=== PATIENT | female | born 1965 | race Caucasian/White ===

== ENCOUNTER 2017-03-15 18:57 | Emergency (ER) | payer MEDICAID ==
[2017-03-15 18:58] VITALS: PULSE 74; BMI 21.7
[2017-03-15 19:10] VITALS: O2SAT 97
--- NOTE | 2017-03-15 19:25 | C.PDOC ---
History Of Present Illness Patient presents to the ED with complaints of intermittent headache for the last two weeks. 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 Patient denies any trauma, weakness, nausea, and vomiting. Time Seen by Provider: 03/15/17 19:14 Chief Complaint (Nursing): Headache History Per: Patient History/Exam Limitations: no limitations Onset/Duration Of Symptoms: Intermittent Episodes (on and off headaches for two weeks ) Current Symptoms Are (Timing): Still Present Severity: Mild Pain Scale Rating Of: 4 Preceeding Symptoms: denies: Visual Disturbances Associated Symptoms: denies: Photophobia, Blurred Vision, Nausea, Vomiting, Extremity Weakness Recent travel outside of the [place]: No Past Medical History Reviewed: Historical Data, Nursing Documentation, Vital Signs Vital Signs: Last Vital Signs Temp 98.5 F 03/15/17 19:06 Pulse 79 03/15/17 19:06 Resp 18 03/15/17 19:06 BP 157/66 H 03/15/17 19:06 Pulse Ox 97 03/15/17 21:03 - Medical History PMH: Anxiety, Arthritis, Atrial Fibrillation, CHF, CVA, Depression, HTN, Hypercholesterolemia, Rheumatoid Arthritis, Seizures - [facility] Procedures GAIT TRAINING/FUNCTIONAL AMBULATION TREATMENT (07/17/15) HOME MANAGEMENT TREATMENT (07/17/15) INTRODUCE OTH THROMBOLYTIC IN PERIPH VEIN, PERC (07/08/15) MOTOR SPEECH TREATMENT (07/17/15) THERAPEUTIC EXERCISE TREATMENT OF MUSCULOSK WHOLE (07/17/15) Family History: States: No Known Family Hx - Social History Hx Tobacco Use: No Hx Alcohol Use: No Hx Substance Use: No - Immunization History Hx Tetanus Toxoid Vaccination: No Hx Influenza Vaccination: No Hx Pneumococcal Vaccination: No Review Of Systems Constitutional: Negative for: Fever, Chills, Sweats Eyes: Negative for: Pain, Vision Change Cardiovascular: Negative for: Chest Pain, Palpitations Respiratory: Negative for: Cough, Shortness of Breath Gastrointestinal: Negative for: Nausea, Vomiting, Abdominal Pain, Diarrhea Neurological: Positive for: Headache. Negative for: Weakness, Numbness Physical Exam - Physical Exam Appears: Non-toxic, No Acute Distress Skin: Warm, Dry Head: Atraumatic Eye(s): bilateral: PERRL, EOMI Neck: Supple Chest: Symmetrical, No Deformity Cardiovascular: Rhythm Regular Respiratory: No Rales, No Rhonchi, No Stridor, No Wheezing Gastrointestinal/Abdominal: Soft, No Tenderness, No Distention, No Guarding, No Rebound Extremity: Normal ROM, No Tenderness Neurological/Psych: Oriented x3, Other (speaking in complete sentences ) ED Course And Treatment - Laboratory Results Result Diagrams: 03/15/17 19:30 03/15/17 19:30 ECG: Interpreted By Me, Viewed By Me ECG Rhythm: Sinus Rhythm (75), 1st Degree HB, Nonspecific Changes O2 Sat by Pulse Oximetry: 97 Pulse Ox Interpretation: Normal Medical Decision Making Medical Decision Making: EXAM: CT Head Without Intravenous Contrast CLINICAL HISTORY: 52 years old, female; Pain; Headache TECHNIQUE: Axial computed tomography images of the head/brain without intravenous contrast. This CT exam was performed using one or more of the following dose reduction techniques: automated exposure control, adjustment of the mA and/or kV according to patient size, and/or use of iterative reconstruction technique. EXAM DATE/TIME: 03/15/2017 7:26 PM COMPARISON: CT - HEAD W/O CONTRAST 01/15/2016 1:12:05 PM FINDINGS: Brain: There is encephalomalacia in the right frontal, temporal and parietal lobes, unchanged. Ventricles are mildly dilated. There is compensatory dilatation of the right lateral ventricle. There is mild atrophic midline shift to the right, unchanged. There is mild prominence of sulci and gyri. There is decreased attenuation in periventricular white matter. There are no focal masses. There are no focal hemorrhages. De La Paz-white differentiation is visualized. Ventricles: See above Bones: Cranial vault is intact. Soft tissues: unremarkable Sinuses: There is no acute sinusitis Ears and mastoids: Middle ears and mastoids are unremarkable. Orbits: Orbital contents are unremarkable. IMPRESSION: Old right MCA distribution infarct, no acute intracranial abnormality Disposition Counseled Patient/Family Regarding: Studies Performed, Diagnosis - Disposition Referrals: Adonay Roa DO [Staff Provider] - Disposition: HOME/ ROUTINE Disposition Time: 19:25 Condition: FAIR Prescriptions: Naproxen [Naprosyn] 1 tab PO BID PRN #25 tab PRN Reason: Pain Instructions: Cervical Strain (DC) - Clinical Impression Clinical Impression: Headache, Cervical strain - Scribe Statement The provider has reviewed the documentation as recorded by the Scribe Ngoc Man All medical record entries made by the Scribe were at my direction and personally dictated by me. I have reviewed the chart and agree that the record accurately reflects my personal performance of the history, physical exam, medical decision making, and the department course for this patient. I have also personally directed, reviewed, and agree with the discharge instructions and disposition.
[2017-03-15 19:33] LABS: BASO % 0.5 % (0.0-2.0); EOS # 0.1 K/uL (0.0-0.7); EOS % 1.2 % (0.0-4.0); HEMATOCRIT 43.2 % (34.0-47.0); LYMPH # 2.5 K/uL (1.0-4.3); LYMPH % 31.6 % (20.0-40.0); MEAN CELL VOLUME 87.3 fL (81.0-99.0); MEAN CORPUSCULAR HEMOGLOBIN 29.6 pg (27.0-31.0); MEAN CORPUSCULAR HGB CONC 33.9 g/dL (33.0-37.0); MEAN PLATELET VOLUME 8.6 fL (7.2-11.7); MONO # 0.4 K/uL (0.0-0.8); MONO % 5.5 % (0.0-10.0); NRBC % 0.1 % (0.0-2.0); RED CELL DISTRIBUTION WIDTH 13.1 % (11.5-14.5)
[2017-03-15 19:45] LABS: CHLORIDE 98 mmol/L (98-107)
[2017-03-15 19:46] LABS: POTASSIUM 3.7 mmol/L (3.6-5.2); SODIUM 138 mmol/L (132-148)
[2017-03-15 19:48] LABS: BILIRUBIN,TOTAL 0.8 mg/dL (0.2-1.3); CARBON DIOXIDE 29 mmol/L (22-30); GFR AFRICAN-AMERICAN > 60
[2017-03-15 19:49] LABS: ALB/GLOB RATIO 1.3 (1.0-2.1); ALKALINE PHOSPHATASE 93 U/L (38-126); ALT/SGPT 32 U/L (9-52); AST/SGOT 28 U/L (14-36); BLOOD UREA NITROGEN 15 mg/dL (7-17); CALCIUM 8.6 mg/dl (8.6-10.4); GLUCOSE,RANDOM 100 mg/dL (65-105); TOTAL PROTEIN 8.2 g/dL (6.3-8.3)
--- NOTE | 2017-03-15 20:38 | CT ---
EXAM: CT Head Without Intravenous Contrast CLINICAL HISTORY: 52 years old, female; Pain; Headache TECHNIQUE: Axial computed tomography images of the head/brain without intravenous contrast. This CT exam was performed using one or more of the following dose reduction techniques: automated exposure control, adjustment of the mA and/or kV according to patient size, and/or use of iterative reconstruction technique. EXAM DATE/TIME: 03/15/2017 7:26 PM COMPARISON: CT - HEAD W/O CONTRAST 01/15/2016 1:12:05 PM FINDINGS: Brain: There is encephalomalacia in the right frontal, temporal and parietal lobes, unchanged. Ventricles are mildly dilated. There is compensatory dilatation of the right lateral ventricle. There is mild atrophic midline shift to the right, unchanged. There is mild prominence of sulci and gyri. There is decreased attenuation in periventricular white matter. There are no focal masses. There are no focal hemorrhages. De La Paz-white differentiation is visualized. Ventricles: See above Bones: Cranial vault is intact. Soft tissues: unremarkable Sinuses: There is no acute sinusitis. Ears and mastoids: Middle ears and mastoids are unremarkable. Orbits: Orbital contents are unremarkable. IMPRESSION: Old right MCA distribution infarct, no acute intracranial abnormality
[2017-03-15 21:23] LABS: RBC URINE < 1 /hpf (0-3); URINE BACTERIA OCC (<OCC); URINE BILIRUBIN NEGATIVE (NEGATIVE); URINE BLOOD NEGATIVE (NEGATIVE); URINE COLOR Yellow (YELLOW); URINE GLUCOSE (UA) NORMAL (Normal); URINE KETONE NEGATIVE (NEGATIVE); URINE LEUKOCYTE ESTERASE NEG Leu/uL (Negative); URINE PROTEIN NEGATIVE (NEGATIVE); URINE UROBILINOGEN NORMAL mg/dL (0.2-1.0); WBC URINE < 1 /hpf (0-5)
[2017-03-15 22:51] VITALS: RESP 16; TEMP 98.4
[2017-03-16 01:16] VITALS: BP 128/86; PULSE 88
== END 2017-03-16 01:16 | disposition home or self-care (01) ==
LOC: C.ER 18:57
DX: R51 Headache (principal); S16.1XXA Strain of muscle, fascia and tendon at neck level, initial encounter; X58.XXXA Exposure to other specified factors, initial encounter
CPT/HCPCS: 70450; 80053; 81001; 85025; 96372; 96374; 99285; J1885; J2405

== ENCOUNTER 2018-07-09 10:54 | Emergency (ER) | payer MEDICAID ==
[2018-07-09 10:54] VITALS: PULSE 74; BMI 21.7
[2018-07-09] MEDS ORDERED: Sodium Chloride 0.9% 1,000 ML IV ONE (11:13)
[2018-07-09] MEDS ORDERED: Sodium Chloride 0.9% 1,000 ML ONE (11:23)
[2018-07-09 11:24] LABS: BASO % 0.4 % (0.0-2.0); EOS # 0.1 K/uL (0.0-0.7); EOS % 1.1 % (0.0-4.0); HEMOGLOBIN 13.8 g/dL (11.0-16.0); LYMPH % 9.4 % (20.0-40.0); MEAN CELL VOLUME 84.9 fL (81.0-99.0); MEAN CORPUSCULAR HEMOGLOBIN 28.6 pg (27.0-31.0); MEAN CORPUSCULAR HGB CONC 33.7 g/dL (33.0-37.0); MEAN PLATELET VOLUME 9.1 fL (7.2-11.7); MONO # 0.5 K/uL (0.0-0.8); MONO % 4.5 % (0.0-10.0); NEUT # 9.4 K/uL (1.8-7.0); NEUT % 84.6 % (50.0-75.0); NRBC % 0.1 % (0.0-2.0); PLATELET COUNT 237 K/uL (130-400); RBC 4.82 Mil/uL (3.80-5.20); RED CELL DISTRIBUTION WIDTH 14.3 % (11.5-14.5); WHITE BLOOD COUNT 11.1 K/uL (4.8-10.8)
[2018-07-09 11:41] LABS: ALB/GLOB RATIO 1.1 (1.0-2.1); ALBUMIN 4.1 g/dL (3.5-5.0); ALT/SGPT 23 U/L (9-52); AST/SGOT 22 U/L (14-36); BLOOD UREA NITROGEN 8 mg/dL (7-17); CALCIUM 9.1 mg/dl (8.6-10.4); GFR NON-AFRICAN AMERICAN > 60; LIPASE 20 U/L (23-300)
[2018-07-09 11:44] LABS: SQUAMOUS EPITHIAL 21 /hpf (0-5); URINE BACTERIA FEW (<OCC); URINE BILIRUBIN NEGATIVE (NEGATIVE); URINE BLOOD 1+ (NEGATIVE); URINE CLARITY Hazy (Clear); URINE COLOR Yellow (YELLOW); URINE GLUCOSE (UA) NORMAL (Normal); URINE LEUKOCYTE ESTERASE 2+ Leu/uL (Negative); URINE PROTEIN NEGATIVE (NEGATIVE); URINE UROBILINOGEN NORMAL mg/dL (0.2-1.0)
[2018-07-09 11:57] LABS: LYMPHOCYTE 11 % (20-40); MONOCYTE 1 % (0-10); NEUTROPHIL 88 % (50-75); PLATELET ESTIMATE NORMAL (NORMAL); TOTAL CELLS COUNTED 100
--- NOTE | 2018-07-09 12:14 | C.PDOC ---
History Of Present Illness 53-year-old female, PMHx includes CVA, presents to the emergency department with multiple complaints. Patient had an MRI done two weeks ago. Pt comes in today, complaining of generalized weakness, dizziness, nausea, and sore throat. She denies any fever, chills, chest pain, shortness of breath or any other associated symptoms. No other complaints at this time. Time Seen by Provider: 07/09/18 11:00 Chief Complaint (Nursing): Dizziness/Lightheaded History Per: Patient History/Exam Limitations: no limitations Past Medical History Reviewed: Historical Data, Nursing Documentation, Vital Signs Vital Signs: Last Vital Signs Temp 99.5 F 07/09/18 11:05 Pulse 99 H 07/09/18 11:05 Resp 18 07/09/18 11:05 BP 135/82 07/09/18 11:05 Pulse Ox 94 L 07/09/18 11:05 - Medical History PMH: Anxiety, Arthritis, Atrial Fibrillation, CHF, CVA, Depression, HTN, Hypercholesterolemia, Rheumatoid Arthritis, Seizures Denies: COPD, Hypothyroidism, Chronic Kidney Disease - [facility] Procedures GAIT TRAINING/FUNCTIONAL AMBULATION TREATMENT (07/17/15) HOME MANAGEMENT TREATMENT (07/17/15) INTRODUCE OTH THROMBOLYTIC IN PERIPH VEIN, PERC (07/08/15) MOTOR SPEECH TREATMENT (07/17/15) THERAPEUTIC EXERCISE TREATMENT OF MUSCULOSK WHOLE (07/17/15) Family History: States: No Known Family Hx - Social History Hx Tobacco Use: No Hx Alcohol Use: No Hx Substance Use: No - Immunization History Hx Tetanus Toxoid Vaccination: No Hx Influenza Vaccination: No Hx Pneumococcal Vaccination: No Review Of Systems Constitutional: Negative for: Fever ENT: Positive for: Throat Pain Gastrointestinal: Positive for: Nausea Neurological: Positive for: Headache, Dizziness Physical Exam - Physical Exam Appears: Non-toxic, No Acute Distress Skin: Normal Color, Warm, Dry Head: Atraumatic, Normacephalic Eye(s): bilateral: Normal Inspection Nose: Normal Oral Mucosa: Moist Lips: Normal Appearing Neck: Normal ROM Cardiovascular: Rhythm Regular, No Murmur Respiratory: Normal Breath Sounds, No Decreased Breath Sounds, No Accessory Muscle Use Gastrointestinal/Abdominal: Soft, No Tenderness Back: Normal Inspection Extremity: Other (left arm/hand contracted, left leg decrease strength) Neurological/Psych: Other (residual left-sided weakness from prior CVA) ED Course And Treatment - Laboratory Results Result Diagrams: 07/09/18 11:20 07/09/18 11:20 Lab Interpretation: No Acute Changes ECG: Interpreted By Me ECG Rhythm: Sinus Rhythm, Nonspecific Changes ECG Interpretation: No Acute Changes Rate From EC O2 Sat by Pulse Oximetry: 94 Pulse Ox Interpretation: Normal - Radiology CXR: Interpreted by Me CXR Interpretation: Yes: No Acute Disease - CT Scan/US No standard instances Other Rad Studies (CT/US): Read By Radiologist, Radiology Report Reviewed CT/US Interpretation: FINDINGS: HEMORRHAGE: No acute parenchymal, subarachnoid or extra-axial hemorrhage. BRAIN: Redemonstrated is a chronic right MCA territory infarct which involves the right lateral basal ganglia. There is associated ex vacuo dilatation of the right lateral ventricle particularly the right frontal horn and anterior body of the lateral ventricle. Additionally, there also appears to be some very mild chronic periventricular white matter ischemic changes. Note the possibility of a small hyperacute infarct cannot be excluded. Moderate generalized volume loss, not withstanding the aforementioned infarct and ex vacuo dilatation changes. Minor vascular calcifications both carotid siphons. VENTRICLES: No obstructive hydrocephalus. CALVARIUM: Calvarium intact. PARANASAL SINUSES: Unremarkable as visualized. No significant inflammatory changes. MASTOID AIR CELLS: Unremarkable as visualiz ed. No inflammatory changes. OTHER FINDINGS: None. IMPRESSION: No acute intracranial hemorrhage. Large chronic right MCA territory infarct which involves the right lateral basal ganglia. There is associated ex vacuo dilatation right lateral ventricle. Mild chronic periventricular white matter ischemic changes.. Moderate generalized volume loss Disposition Counseled Patient/Family Regarding: Studies Performed, Diagnosis, Need For Followup, Rx Given - Disposition Referrals: Adonay Roa DO [Staff Provider] - Disposition: HOME/ ROUTINE Disposition Time: 13:00 Condition: STABLE Additional Instructions: Follow up with your PMD for further evaluation Return to ED if any increase symptoms Prescriptions: Sulfamethoxazole/Trimethoprim [Bactrim DS 800 mg-160 mg] 1 tab PO BID #14 tab Instructions: Urinary Tract Infections in Adults, Vertigo (a Type of Dizziness) (DC) Forms: [facility] ([place]) - POA Present On Arrival: None - Clinical Impression Clinical Impression: Dizziness, UTI (urinary tract infection) - Scribe Statement The provider has reviewed the documentation as recorded by the Scribe (Joshua Marks) All medical record entries made by the Scribe were at my direction and personally dictated by me. I have reviewed the chart and agree that the record accurately reflects my personal performance of the history, physical exam, medical decision making, and the department course for this patient. I have also personally directed, reviewed, and agree with the discharge instructions and d isposition.
--- NOTE | 2018-07-09 12:42 | CT ---
Date of service: 07/09/2018 PROCEDURE: CT HEAD WITHOUT CONTRAST. HISTORY: R/O Bleed COMPARISON: Comparison made with prior CT scan brain 03/15/2017 TECHNIQUE: Axial computed tomography images were obtained through the head/brain without intravenous contrast. Radiation dose: Total exam DLP = 1199.63 mGy-cm. This CT exam was performed using one or more of the following dose reduction techniques: Automated exposure control, adjustment of the mA and/or kV according to patient size, and/or use of iterative reconstruction technique. FINDINGS: HEMORRHAGE: No acute parenchymal, subarachnoid or extra-axial hemorrhage. BRAIN: Redemonstrated is a chronic right MCA territory infarct which involves the right lateral basal ganglia. There is associated ex vacuo dilatation of the right lateral ventricle particularly the right frontal horn and anterior body of the lateral ventricle. Additionally, there also appears to be some very mild chronic periventricular white matter ischemic changes. Note the possibility of a small hyperacute infarct cannot be excluded. Moderate generalized volume loss, not withstanding the aforementioned infarct and ex vacuo dilatation changes. Minor vascular calcifications both carotid siphons. VENTRICLES: No obstructive hydrocephalus. CALVARIUM: Calvarium intact. PARANASAL SINUSES: Unremarkable as visualized. No significant inflammatory changes. MASTOID AIR CELLS: Unremarkable as visualized. No inflammatory changes. OTHER FINDINGS: None. IMPRESSION: No acute intracranial hemorrhage. Large chronic right MCA territory infarct which involves the right lateral basal ganglia. There is associated ex vacuo dilatation right lateral ventricle. Mild chronic periventricular white matter ischemic changes.. Moderate generalized volume loss
[2018-07-09] MEDS ORDERED: Tmp-Smz 800 mg-160 mg DS Tab PO STA (12:45)
[2018-07-09] MEDS ORDERED: Tmp-Smz 800 mg-160 mg DS Tab ONE (13:00)
--- NOTE | 2018-07-09 13:16 | RAD ---
Date of service: 07/09/2018 PROCEDURE: CHEST RADIOGRAPH, 1 VIEW HISTORY: SOB COMPARISON: 07/15/2016 FINDINGS: LUNGS: Shallow inspiration. Limited visualization of the left lung base-attributed to cardiomegaly, large body habitus and prominent breast soft tissues. No consolidation. PLEURA: No pneumothorax.Although a trace left pleural effusion cannot be entirely excluded-no more significant appearing small left pleural effusion as prior study reported is now appreciated. CARDIOVASCULAR: Cardiomegaly-similar. Central pulmonary vasculature probably [id number] per shallow lung volumes. A mild central pulmonary venous congestion is still possible. OSSEOUS STRUCTURES: Thoracic spondylosis. Bilateral shoulder arthrosis. No destructive lesion is appreciated VISUALIZED UPPER ABDOMEN: Mild asymmetrical elevation the right hemidiaphragm-stable finding OTHER FINDINGS: None. IMPRESSION: Limited exam given shallow inspiration. Similar cardiomegaly. Mild central pulmonary venous congestion possible.
[2018-07-09 13:34] VITALS: RESP 16
[2018-07-09 15:16] VITALS: BP 118/75; PULSE 85; TEMP 98.6
[2018-07-09 18:36] VITALS: O2SAT 94
--- NOTE | 2018-07-10 11:35 | CARD ---
APPROVED REPORT Date of service: 07/09/2018 EKG Measurement Heart [id number] <Conclusion> Normal sinus rhythm Nonspecific T wave abnormality Abnormal ECG
== END 2018-07-09 15:14 | disposition home or self-care (01) ==
LOC: C.ER 10:54
DX: R42 Dizziness and giddiness (principal); N39.0 Urinary tract infection, site not specified
CPT/HCPCS: 70450; 71045; 80053; 81001; 82948; 83690; 84484; 85025; 93005; 96360; 99285; J2765; J7030